=== PATIENT | male | born 1960 | race Two or more races ===

== ENCOUNTER 2021-08-12 05:36 | Day surgery (SDC) | payer OTHER ==
[2021-08-12] MEDS ORDERED: PERCOCET 5-3251 EACH PO (12:11)
== END 2021-08-12 15:25 | disposition home or self-care (01) ==
LOC: CIR.AMB 05:36
PROVIDERS: ATTEND Surgery
DX: K64.8 Other hemorrhoids (principal); K64.4 Residual hemorrhoidal skin tags; Z20.822 Contact with and (suspected) exposure to COVID-19